=== PATIENT | male | born 1960 | race Caucasian/White ===

== ENCOUNTER → 2018-04-13 | Day surgery (SDC) | payer OTHER ==
[2018-04-08 11:04] VITALS: BMI 29.1
[~2018-04-13] MED LIST: PROPOFOL 20 ML ONE
[2018-04-13 14:51] VITALS: BP 120/78; PULSE 75
[2018-04-13 14:54] VITALS: TEMP 97.9
--- NOTE | 2018-04-14 16:37 | PATH ---
Surgical Pathology Report Patient Name: NANO MURPHY [facility]. Rec. #: [id number] /Age/Gender: 1960 (Age: 57) / M Account: [id number] Location: [facility] AMBULATORY Taken: 04/13/2018 Received: 04/13/2018 Reported: 04/14/2018 Physicians: Amy Anderson M.D. Specimen(s) Received BX SIGMOID Clinical History Family history of colon cancer, history of polyp Postoperative diagnosis: Polyp, hemorrhoid, diverticulosis Final Diagnosis SIGMOID X 3, BIOPSY: COLONIC MUCOSA WITH REACTIVE LYMPHOID AGGREGATE IN THE LAMINA PROPRIA. NO HISTOLOGIC EVIDENCE OF ACTIVE COLITIS. Electronically Signed Pietro Griffith M.D. Gross Description Received in formalin, labeled "sigmoid x3" are 4 morales, irregular portions of soft tissue ranging from 0.2-0.3 cm. in greatest dimension. The specimens are submitted in toto in one cassette. /04/13/2018 saudi04/13/2018
== END | disposition home or self-care (01) ==
LOC: FASU 10:05
PROVIDERS: ATTEND Internal Medicine Gastroenterology
PROC: 0DBN8ZX Excision of Sigmoid Colon, Via Natural or Artificial Opening Endoscopic, Diagnostic (ICD-10-PCS; principal; 2018-04-13 11:37)
DX: Z86.010 Personal history of colon polyps (principal); D12.5 Benign neoplasm of sigmoid colon; K57.30 Diverticulosis of large intestine without perforation or abscess without bleeding; K64.1 Second degree hemorrhoids; I10 Essential (primary) hypertension; E78.5 Hyperlipidemia, unspecified; I25.2 Old myocardial infarction; I25.10 Atherosclerotic heart disease of native coronary artery without angina pectoris; R16.0 Hepatomegaly, not elsewhere classified
CPT/HCPCS: 88305-TC